=== PATIENT | female | born 1955 | race Caucasian/White ===

== ENCOUNTER 2016-12-17 18:30 | Inpatient (IN) | payer MEDICAID ==
[~2016-12-17] VITALS: Ht 165.1 cm; Wt 71.2 kg
[2016-12-17 19:26] LABS: Basophils # (auto) 0.1 uL; Basophils % (auto) 1.1 % (0.0-2.0); CONDITION Y; Eosinophils # (auto) 0 uL; Eosinophils % (auto) 0.2 % (0.0-7.0); Hematocrit 46.4 % (36.0-46.0); Hemoglobin 15.8 g/dL (12.2-16.2); Lymphocytes # (auto) 1.4 uL; Lymphocytes % (auto) 18.5 % (10.0-50.0); Mean Corpuscular Hemoglobin 32.1 pg (28.0-32.0); Mean Corpuscular Volume 94.5 fL (80.0-100.0); Mean Platelet Volume 11.2 fL (7.4-10.4); Monocytes # (auto) 0.6 uL; Monocytes % (auto) 7.6 % (0.0-12.0); Neutrophils # (auto) 5.5 uL; Neutrophils % (auto) 72.6 % (37.0-80.0); Platelet Count (auto) 196 10^3/uL (140-450); Red Cell Distribution Width 15.3 % (11.6-16.0); White Blood Cell 7.6 10^3/uL (4.4-10.8)
[2016-12-17 19:33] LABS: INR 1.12 (0.9-1.15); Partial Thromboplastin Time 25.5 sec (22.64-33.71); Prothrombin Time 12.2 sec (9.37-12.3)
[2016-12-17 19:40] LABS: Albumin 3.3 g/dL (3.4-5.0); Anion Gap 15 (5-15); Blood Urea Nitrogen 8 mg/dL (7-18); Calcium 9.5 mg/dL (8.5-10.1); Carbon Dioxide 22 mmol/L (21-32); Chloride 109 mmol/L (98-107); Glucose 121 mg/dL (74-106); Sodium 146 mmol/L (136-145)
[2016-12-17 19:42] LABS: Aspartate Aminotransferase 38 U/L (15-37); BUN/Creatinine Ratio 14.8; GFR African American 148 mL/min; GFR Non-African American 122 mL/min
[2016-12-17 19:47] LABS: Alkaline Phosphatase 123 U/L (45-117); Bilirubin, Total 0.8 mg/dL (0.2-1.0); Total Protein 9.6 g/dL (6.4-8.2)
[2016-12-17 20:24] LABS: Urine Bilirubin Negative (Negative); Urine Blood Negative /uL (Negative); Urine Color Yellow (Yellow); Urine Glucose Normal (Normal); Urine Ketone 2+ (Negative); Urine Mucus FEW (None Seen); Urine Nitrite Negative (Negative); Urine RBC <1 /hpf (0 - 4); Urine Squamous Epithelial Cell FEW /hpf (<5)
[2016-12-17] MEDS ORDERED: ALBUTEROL SULF 2.5 MG/0.5ML(0.5%) NEB SOLN NEB PRN (20:45)
[2016-12-17] MEDS ORDERED: cloNIDine HCL 0.1 MG TAB PO PRN (20:45)
[2016-12-17] MEDS ORDERED: POTASSIUM CHL 10% (20 MEQ/15ML) 15ml ORAL SOLN PO ONE (21:00)
[2016-12-17] MEDS: SODIUM CHLORIDE 0.9% 1,000 ML IV SCH (21:07)
[2016-12-17 23:48] VITALS: BP 117/60
[2016-12-17 23:50] VITALS: BP 117/60
[2016-12-18] VITALS (8 sets, daily range): BP systolic 117–164; BP diastolic 60–87
[2016-12-18] MEDS ORDERED: QUET25TA37 PO (01:55)
[2016-12-18] MEDS ORDERED: NORT25CA PO (01:55)
[2016-12-18] MEDS ORDERED: HYDR-4663 PO (01:55)
[2016-12-18] MEDS ORDERED: MORP15TA PO (01:55)
[2016-12-18] MEDS ORDERED: CLON0.5T PO (01:55)
[2016-12-18] MEDS ORDERED: BACL10TA PO (01:55)
[2016-12-18] MEDS: SODIUM CHLORIDE 0.9% 1,000 ML IV SCH (05:27)
[2016-12-18 06:11] LABS: Basophils # (auto) 0 uL; Basophils % (auto) 0.4 % (0.0-2.0); CONDITION Y; Eosinophils # (auto) 0 uL; Eosinophils % (auto) 0.4 % (0.0-7.0); Hematocrit 44.6 % (36.0-46.0); Hemoglobin 15.4 g/dL (12.2-16.2); Lymphocytes # (auto) 2.7 uL; Mean Corpuscular Hemoglobin 32.5 pg (28.0-32.0); Mean Corpuscular Hgb Conc. 34.4 g/dL (32.0-36.0); Mean Corpuscular Volume 94.3 fL (80.0-100.0); Mean Platelet Volume 11.6 fL (7.4-10.4); Monocytes # (auto) 1.2 uL; Monocytes % (auto) 13.3 % (0.0-12.0); Neutrophils # (auto) 5.1 uL; Neutrophils % (auto) 55.9 % (37.0-80.0); Platelet Count (auto) 143 10^3/uL (140-450); Red Cell Distribution Width 15.5 % (11.6-16.0); SUSPECT SEE PRINTOUT; White Blood Cell 9.1 10^3/uL (4.4-10.8)
[2016-12-18 06:30] LABS: BUN/Creatinine Ratio 19.2; Calcium 9.1 mg/dL (8.5-10.1)
[2016-12-18 06:33] LABS: Bilirubin, Total 0.8 mg/dL (0.2-1.0); Total Protein 8.8 g/dL (6.4-8.2)
[2016-12-18 06:38] LABS: Potassium 2.9 mmol/L (3.5-5.1)
[2016-12-18] MEDS ORDERED: POTASSIUM CHL 20 Meq TABLET PO ONE ×2 (06:45→11:00)
[2016-12-18] MEDS: SOD CHL 0.45% WITH 20MEQ KCL 1,000 ML IV SCH (06:45)
[2016-12-18] MEDS ORDERED: POTASSIUM CHLORIDE 40 MEQ, LIDOCAINE 1% (LOCAL ANESTH.) 4 ML in SODIUM CHL 0.9% 250 ML IV ONE (12:00)
[2016-12-18] MEDS: HYDROcodone-ACET 5/325MG TAB PO PRN ×2 (14:22→21:23)
[2016-12-18] MEDS ORDERED: QUET200T3 PO (22:53)
[2016-12-19] VITALS (8 sets, daily range): BP systolic 133–152; BP diastolic 68–84
[2016-12-19] MEDS: SOD CHL 0.45% WITH 20MEQ KCL 1,000 ML IV SCH ×2 (02:09→21:53)
[2016-12-19 06:07] LABS: CONDITION Y; Hematocrit 37.5 % (36.0-46.0); Hemoglobin 12.4 g/dL (12.2-16.2); Mean Corpuscular Hemoglobin 32.1 pg (28.0-32.0); Mean Corpuscular Hgb Conc. 33.2 g/dL (32.0-36.0); Mean Corpuscular Volume 96.6 fL (80.0-100.0); Mean Platelet Volume 11.7 fL (7.4-10.4); Platelet Count (auto) 143 10^3/uL (140-450); Red Cell Distribution Width 15.4 % (11.6-16.0); White Blood Cell 4.5 10^3/uL (4.4-10.8)
[2016-12-19 06:09] LABS: Metamyelocytes % 0; Myelocytes % 0; Promyelocytes % 0; Reactive Lymphocytes 0
[2016-12-19 06:25] LABS: Albumin 2.4 g/dL (3.4-5.0); BUN/Creatinine Ratio 26.7; Calcium 8.2 mg/dL (8.5-10.1); Potassium 3.5 mmol/L (3.5-5.1)
[2016-12-19 06:27] LABS: Bilirubin, Total 0.8 mg/dL (0.2-1.0); Total Protein 6.9 g/dL (6.4-8.2)
[2016-12-19 09:03] LABS: Large Platelets FEW; Platelet Estimate Adequate
[2016-12-19] MEDS: HYDROcodone-ACET 5/325MG TAB PO PRN ×3 (09:24→21:53)
[2016-12-20] MEDS: HYDROcodone-ACET 5/325MG TAB PO PRN ×3 (03:55→16:09)
[2016-12-20 05:00] VITALS: BP 145/70
[2016-12-20 08:00] VITALS: BP 161/88
[2016-12-20 08:50] VITALS: BP 161/88
[2016-12-20 12:53] VITALS: BP 156/82
[2016-12-20 16:28] VITALS: BP 143/76
== END 2016-12-20 16:47 | disposition home or self-care (01) | DRG 756 ==
LOC: EDBD 18:30 → ER 18:46 → OVERFLOW 18:47 → WEST WING 23:30
PROVIDERS: ADMIT Family Medicine; ATTEND Internal Medicine
DX: F99 Mental disorder, not otherwise specified (principal); G93.41 Metabolic encephalopathy; I10 Essential (primary) hypertension; J44.9 Chronic obstructive pulmonary disease, unspecified; E87.6 Hypokalemia; F31.9 Bipolar disorder, unspecified; B19.20 Unspecified viral hepatitis C without hepatic coma
CPT/HCPCS: 36415; 51702; 70450; 71010; 71250; 80053; 80307; 80320; 81001; 82140; 84484; 85007; 85025; 85027; 85610; 85730; 87081; 93005; 94761; J2001

== ENCOUNTER 2018-07-13 14:07 | Emergency (ER) | payer BC, MEDICAID ==
[~2018-07-13] VITALS: Ht 165.1 cm; Wt 77.1 kg
[~2018-07-13 14:07] MED LIST: BACL10TA PO; CLON0.5T PO; HYDR-4683 PO; MORP-109 PO; NORT25CA PO; QUET200T3 PO
[2018-07-13] MEDS ORDERED: IBUPROFEN 600 MG TAB PO ONE (14:15)
[2018-07-13 15:05] LABS: Albumin 3.9 g/dL (3.4-5.0); Anion Gap 6 (5-15); Blood Urea Nitrogen 14 mg/dL (7-18); Calcium 8.5 mg/dL (8.5-10.1); Carbon Dioxide 25 mmol/L (21-32); Chloride 105 mmol/L (98-107); GFR African American 109 mL/min; GFR Non-African American 90 mL/min; Glucose 90 mg/dL (74-106); Potassium 3.9 mmol/L (3.5-5.1); Sodium 136 mmol/L (136-145)
[2018-07-13 15:10] LABS: Alanine Aminotransferase 26 U/L (13-56); Alkaline Phosphatase 98 U/L (45-117); Aspartate Aminotransferase 22 U/L (15-37); Bilirubin, Total 0.2 mg/dL (0.2-1.0); Total Protein 7.2 g/dL (6.4-8.2)
[2018-07-13 15:11] LABS: Urine Bacteria NONE SEEN /hpf (None Seen); Urine Blood Negative /uL (Negative); Urine Mucus FEW (None Seen); Urine Specific Gravity 1.028 (1.001-1.035); Urine WBC 10 /hpf (0 - 5)
[2018-07-13 15:11] LABS: Hematocrit 42.9 % (36.0-46.0); Hemoglobin 14.4 g/dL (12.2-16.2); Mean Corpuscular Hemoglobin 31.2 pg (28.0-32.0); Mean Corpuscular Hgb Conc. 33.5 g/dL (32.0-36.0); Platelet Count (auto) 227 10^3/uL (140-450); Red Blood Cells 4.62 10^6/uL (4.0-5.20); Red Cell Distribution Width 13.8 % (11.8-14.3)
[2018-07-13 15:16] LABS: Band Neutrophils % (manual) 0; Basophils % (manual) 0 (0.0-2.0); Blast Cells 0; Eosinophils % (manual) 0 (0-7); Metamyelocytes % 0; Myelocytes % 0; Promyelocytes % 0; Reactive Lymphocytes 0
[2018-07-13 15:38] LABS: Lymphocytes % (manual) 19 (10.0-50.0); Monocytes % (manual) 7 (0-12)
[2018-07-13 16:53] VITALS: BP 124/67
== END 2018-07-13 17:05 | disposition home or self-care (01) ==
LOC: ER 14:07
DX: J20.9 Acute bronchitis, unspecified (principal); N39.0 Urinary tract infection, site not specified; J44.9 Chronic obstructive pulmonary disease, unspecified; I10 Essential (primary) hypertension; F17.210 Nicotine dependence, cigarettes, uncomplicated; Z90.710 Acquired absence of both cervix and uterus; Z98.51 Tubal ligation status; Z90.89 Acquired absence of other organs; Z91.018 Allergy to other foods
CPT/HCPCS: 36415; 71046; 80053; 81001; 84484; 85007; 85027; 93005